=== PATIENT | male | born 1965 | race Caucasian/White ===

== ENCOUNTER 2017-07-25 18:20 | Emergency (ER) | payer SELFPAY ==
[2017-07-25 18:45] LABS: Glucose,Whole Blood 92 mg/dL (75-99)
--- NOTE | 2017-07-25 18:47 | ED ---
General Adult HPI - General Chief complaint: Neuro Symptoms/Deficit Stated complaint: numbness both arms and left side of face,dizziness Time Seen by Provider: 07/25/17 18:36 Source: patient, RN notes reviewed Mode of arrival: ambulatory Limitations: no limitations - History of Present Illness Initial comments: Patient is a pleasant 51-year-old male presenting to the emergency Department with paresthesias. Onset of symptoms was a week ago. Symptoms have been persistent. Patient has paresthesias from his right wrist or right elbow. Patient also has developed paresthesias from the left wrist to the left elbow. Patient states today he developed paresthesias of the left side of the face. Patient has been a little bit lightheaded. No weakness. No confusion. No speech problems. No history of some her symptoms previously. 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 - Related Data Home Medications Medication Instructions Recorded Confirmed No Known Home Medications [No 07/25/17 07/25/17 Known Home Medications] Allergies Allergy/AdvReac Type Severity Reaction Status Date / Time No Known Allergies Allergy Verified 07/25/17 18:55 Review of Systems ROS Statement: Those systems with pertinent positive or pertinent negative responses have been documented in the HPI. ROS Other: All systems not noted in ROS Statement are negative. Constitutional: Denies: fever Eyes: Denies: eye pain ENT: Denies: ear pain Respiratory: Denies: dyspnea Cardiovascular: Denies: chest pain Endocrine: Denies: fatigue Gastrointestinal: Denies: abdominal pain Genitourinary: Denies: dysuria Musculoskeletal: Denies: back pain Skin: Denies: rash Neurological: Reports: paresthesias. Denies: headache, weakness, confusion Past Medical History Past Medical History: Myocardial Infarction ([place]) History of Any Multi-Drug Resistant Organisms: None Reported Past Surgical History: Heart Catheterization Past Psychological History: No Psychological Hx Reported Smoking Status: Current every day smoker Past Alcohol Use History: Daily Past Drug Use History: Marijuana General Exam Limitations: no limitations General appearance: alert, in no apparent distress Head exam: Present: atraumatic, normocephalic Eye exam: Present: normal appearance, PERRL, EOMI ENT exam: Present: normal oropharynx Neck exam: Present: normal inspection Respiratory exam: Present: normal lung sounds bilaterally Cardiovascular Exam: Present: regular rate, normal rhythm GI/Abdominal exam: Present: soft. Absent: tenderness Extremities exam: Present: normal inspection, full ROM. Absent: tenderness Neurological exam: Present: alert, oriented X3, CN II-XII intact. Absent: motor sensory deficit Expanded Speech: Present: fluid speech Cranial nerves: EOM's Intact: Normal, Facial Sensation: Normal Cerebellar function: Finger to Nose: Normal Sensory exam: Upper Extremity Light Touch: Normal, Lower Extremity Light Touch: Normal Motor strength exam: RUE: 5, LUE: 5, RLE: 5, LLE: 5 Eye Response: (4) open spontaneously Motor Response: (6) obeys commands Verbal Response: (5) oriented Psychiatric exam: Present: normal affect, normal mood Skin exam: Present: normal color Course Vital Signs 07/25/17 07/25/17 07/25/17 18:26 19:29 20:27 Temperature 97.1 F L 97.9 F Pulse Rate 82 85 84 Respiratory 18 20 20 Rate Blood Pressure 161/90 188/105 155/100 O2 Sat by Pulse 100 97 97 Oximetry EKG Findings - EKG Comments: EKG Findings:: Normal sinus rhythm 78. AK 150. QRS 94. UTC 396. QTc 451. Left axis. Normal QRS. No acute ST change. Medical Decision Making - Medical Decision Making Patient reevaluated and resting comfortably in bed. Unchanged. Patient states he does drink alcohol frequently and is advised to decrease alcohol intake and take thiamine daily. Patient was updated on results and need for follow-up, especially with hypertension. - Lab Data Result diagrams: 07/25/17 18:45 07/25/17 18:45 Lab Results 07/25/17 07/25/17 07/25/17 Range/Units 18:42 18:45 18:45 WBC 4.9 (3.8-10.6) k/uL RBC 4.93 (4.30-5.90) m/uL Hgb 16.7 (13.0-17.5) gm/dL Hct 50.7 (39.0-53.0) % MCV 102.7 H (80.0-100.0) fL MCH 33.8 (25.0-35.0) pg MCHC 32.9 (31.0-37.0) g/dL RDW 13.7 (11.5-15.5) % Plt Count 187 (150-450) k/uL Neutrophils % 72 % Lymphocytes % 15 % Monocytes % 7 % Eosinophils % 4 % Basophils % 1 % Neutrophils # 3.5 (1.3-7.7) k/uL Lymphocytes # 0.8 L (1.0-4.8) k/uL Monocytes # 0.3 (0-1.0) k/uL Eosinophils # 0.2 (0-0.7) k/uL Basophils # 0.1 (0-0.2) k/uL Macrocytosis Slight PT (9.0-12.0) sec INR (<1.2) APTT (22.0-30.0) sec Sodium (137-145) mmol/L Potassium (3.5-5.1) mmol/L Chloride (98-107) mmol/L Carbon Dioxide (22-30) mmol/L Anion Gap mmol/L BUN (9-20) mg/dL Creatinine (0.66-1.25) mg/dL Est GFR (MDRD) Af Amer (>60 ml/min/1.73 sqM) Est GFR (MDRD) Non-Af (>60 ml/min/1.73 sqM) Glucose (74-99) mg/dL POC Glucose (mg/dL) 92 (75-99) mg/dL POC Glu [employer] Rafael, Kayla Calcium (8.4-10.2) mg/dL Total Bilirubin (0.2-1.3) mg/dL AST (17-59) U/L ALT (21-72) U/L Alkaline Phosphatase (38-126) U/L Total Creatine Kinase 178 H (55-170) U/L CK-MB (CK-2) 2.2 (0.0-2.4) ng/mL CK-MB (CK-2) Rel Index 1.2 Troponin I <0.012 (0.000-0.034) ng/mL Total Protein (6.3-8.2) g/dL Albumin (3.5-5.0) g/dL Serum Alcohol mg/dL 07/25/17 07/25/17 Range/Units 18:45 18:45 WBC (3.8-10.6) k/uL RBC (4.30-5.90) m/uL Hgb (13.0-17.5) gm/dL Hct (39.0-53.0) % MCV (80.0-100.0) fL MCH (25.0-35.0) pg MCHC (31.0-37.0) g/dL RDW (11.5-15.5) % Plt Count (150-450) k/uL Neutrophils % % Lymphocytes % % Monocytes % % Eosinophils % % Basophils % % Neutrophils # (1.3-7.7) k/uL Lymphocytes # (1.0-4.8) k/uL Monocytes # (0-1.0) k/uL Eosinophils # (0-0.7) k/uL Basophils # (0-0.2) k/uL Macrocytosis PT 10.4 (9.0-12.0) sec INR 1.0 (<1.2) APTT 25.6 (22.0-30.0) sec Sodium 140 (137-145) mmol/L Potassium 3.9 (3.5-5.1) mmol/L Chloride 106 (98-107) mmol/L Carbon Dioxide 23 (22-30) mmol/L Anion Gap 11 mmol/L BUN 10 (9-20) mg/dL Creatinine 0.82 (0.66-1.25) mg/dL Est GFR (MDRD) Af Amer >60 (>60 ml/min/1.73 sqM) Est GFR (MDRD) Non-Af >60 (>60 ml/min/1.73 sqM) Glucose 93 (74-99) mg/dL POC Glucose (mg/dL) (75-99) mg/dL POC Glu [employer] ID Calcium 9.2 (8.4-10.2) mg/dL Total Bilirubin 0.8 (0.2-1.3) mg/dL AST 55 (17-59) U/L ALT 35 (21-72) U/L Alkaline Phosphatase 99 (38-126) U/L Total Creatine Kinase (55-170) U/L CK-MB (CK-2) (0.0-2.4) ng/mL CK-MB (CK-2) Rel Index Troponin I (0.000-0.034) ng/mL Total Protein 7.2 (6.3-8.2) g/dL Albumin 4.3 (3.5-5.0) g/dL Serum Alcohol 57 mg/dL - Radiology Data Radiology results: image reviewed (Computed tomography scan of the brain shows no acute process. Chest x-ray shows no acute process.) Disposition Clinical Impression: Paresthesia Disposition: HOME SELF-CARE Condition: Stable Instructions: Paresthesia (ED) Additional Instructions: Please follow-up with primary care physician in the next day or 2 for recheck. Please have your blood pressure rechecked. Take thiamine supplement 100 mg daily until follow-up with primary care physician. Decrease alcohol intake. Return for weakness, speech problems, confusion, worsening or changing symptoms or other concerns. Referrals: Jefry Coley MD [STAFF PHYSICIAN] - 1-2 days Roly Alfonso MD [STAFF PHYSICIAN] - 1-2 days Theodore Horton MD [STAFF PHYSICIAN] - 1-2 days Time of Disposition: 20:35
[2017-07-25 19:04] LABS: Basophils # (A) 0.1 k/uL (0-0.2); Basophils % (A) 1 %; CH 33.3; CHCM 32.6; Eosinophils # (A) 0.2 k/uL (0-0.7); Eosinophils % (A) 4 %; HCT 50.7 % (39.0-53.0); HDW 1.96; HGB 16.7 gm/dL (13.0-17.5); Luc # (Auto) 0.07; Luc % (Auto) 1; Lymphocytes # (A) 0.8 k/uL (1.0-4.8); Lymphocytes % (A) 15 %; MCH 33.8 pg (25.0-35.0); MCHC 32.9 g/dL (31.0-37.0); MCV 102.7 fL (80.0-100.0); Macrocytosis Slight; Mean Platelet Volume 7.1; Monocytes # (A) 0.3 k/uL (0-1.0); Monocytes % (A) 7 %; Neutrophils # (A) 3.5 k/uL (1.3-7.7); Neutrophils % (A) 72 %; RBC 4.93 m/uL (4.30-5.90); RDW 13.7 % (11.5-15.5); WBC 4.9 k/uL (3.8-10.6); WBC (Perox) 4.91
[2017-07-25 19:13] LABS: ALT 35 U/L (21-72); AST 55 U/L (17-59); Alcohol 57 mg/dL; Alkaline Phosphatase 99 U/L (38-126); Anion Gap 11 mmol/L; Blood Urea Nitrogen 10 mg/dL (9-20); Calcium 9.2 mg/dL (8.4-10.2); Carbon Dioxide 23 mmol/L (22-30); Chloride 106 mmol/L (98-107); Glucose 93 mg/dL (74-99); Non-African American GFR(MDRD) >60 (>60 ml/min/1.73 sqM); Potassium 3.9 mmol/L (3.5-5.1); Sodium 140 mmol/L (137-145); Total Bilirubin 0.8 mg/dL (0.2-1.3); Total Protein 7.2 g/dL (6.3-8.2)
--- NOTE | 2017-07-25 19:16 | XR ---
EXAMINATION TYPE: XR chest 2V DATE OF EXAM: 07/25/2017 COMPARISON: NONE HISTORY: Altered mental status. Arm numbness. TECHNIQUE: Frontal and lateral views of the chest are obtained. FINDINGS: There is no heart failure nor confluent pneumonic infiltrate. There are chest leads. Costo phrenic angles are clear. Bony thorax is intact. IMPRESSION: No active cardiopulmonary disease. Normal heart.
[2017-07-25 19:17] LABS: Creatine Kinase 178 U/L (55-170)
[2017-07-25 19:26] LABS: Prothrombin Time 10.4 sec (9.0-12.0)
[2017-07-25 19:27] LABS: Partial Thromboplastin Time 25.6 sec (22.0-30.0)
[2017-07-25 19:30] LABS: Creatine Kinase MB 2.2 ng/mL (0.0-2.4); Troponin I <0.012 ng/mL (0.000-0.034)
--- NOTE | 2017-07-25 20:09 | CT ---
EXAMINATION TYPE: CT brain wo con DATE OF EXAM: 07/25/2017 Comparison none. TECHNIQUE: Multiple axial sections were obtained of the brain with no contrast. Findings Ventricles and sulci appear normal. There is no mass effect nor midline shift. There is no sign of in tracranial hemorrhage. The calvarium is intact. There is minimal mucosal thickening in the ethmoid ai r cells. CONCLUSION: Negative CT scan of the brain. Minimal ethmoid sinusitis. HISTORY: Bilateral arm numbness x1 week, left side of face numbness and dizziness. No prior. CT DLP: 971.3 mGycm Automated exposure control for dose reduction was used.
[2017-07-25 20:27] VITALS: RESP 20
[2017-07-25] MEDS ORDERED: THIAMINE 100 MG TAB PO STA (20:29)
[2017-07-25] MEDS ORDERED: amLODIPine 5 MG TAB PO STA (20:31)
[2017-07-25 21:00] VITALS: BP 155/98; PULSE 76; TEMP 98.1
== END 2017-07-25 20:56 | disposition home or self-care (01) ==
LOC: EC 18:20
DX: R20.2 Paresthesia of skin (principal); R42 Dizziness and giddiness; F17.200 Nicotine dependence, unspecified, uncomplicated
CPT/HCPCS: 36415; 70450; 71020; 80053; 80320; 82550; 82553; 84484; 85025; 85610; 85730; 93005; 99284